=== PATIENT | female | born 1945 | race Caucasian/White ===

== ENCOUNTER 2018-10-21 07:48 | Emergency (ER) | payer OTHER ==
[~2018-10-21] VITALS: Ht 177.8 cm; Wt 81.7 kg
[~2018-10-21 07:48] MED LIST: NOHOMEMEDICATIONS
[2018-10-21 09:58] VITALS: BP 180/72
== END 2018-10-21 09:59 | disposition home or self-care (01) ==
LOC: M.ERS 07:48
DX: S92.912A Unspecified fracture of left toe(s), initial encounter for closed fracture (principal); S90.32XA Contusion of left foot, initial encounter; F10.10 Alcohol abuse, uncomplicated; W10.8XXA Fall (on) (from) other stairs and steps, initial encounter; Y93.89 Activity, other specified; Y92.89 Other specified places as the place of occurrence of the external cause; Y99.8 Other external cause status

== ENCOUNTER 2021-04-02 16:29 | Emergency (ER) | payer OTHER ==
[~2021-04-02] VITALS: Ht 177.8 cm; Wt 83.9 kg
[2021-04-02 16:52] VITALS: BP 152/74
--- NOTE | 2021-04-03 11:01 | EKG ---
[place] [address] ELECTROCARDIOGRAM REPORT Name: DARCIE ARELLANO Room: [facility]#: [id number] Admission: 04/02/21 Attend Phys: Discharge: 04/02/21 Date of : 47 Date of Service: 04/02/211650 Report #: [id number] THIS REPORT FOR: //name// [facility] ED Test Date: 2021-04-02 Test Time: 16:51:02 Pat Name: DARCIE MONGEPEPPER Department: Room: Gender: F Cheese Maker: Ottoniel : 1945 Requested By: Coral Crowder Order Number: [id number] MD: Frederick Gold Measurements Intervals [place] Rate: 75 P: 18 [place]: 155 QRS: -3 QRSD: 92 T: 2 QT: 368 QTc: 411 Interpretive Statements Sinus rhythm Probable left atrial enlargement Probable left ventricular hypertrophy Inferior infarct, age indeterminate No previous ECG available for comparison Electronically Signed On 04-03-2021 11:01:[address] VENDOR by Frederick Gold [email or web address] <ELECTRONICALLY SIGNED> By: Frederick Gold MD, [facility] 04/03/21 1101 [id number] [id number] Frederick Gold MD, [facility] /EPI
== END 2021-04-02 18:42 | disposition left against medical advice (07) ==
LOC: M.ERS 16:29
DX: R07.89 Other chest pain (principal); E66.9 Obesity, unspecified; Z85.118 Personal history of other malignant neoplasm of bronchus and lung; Z88.5 Allergy status to narcotic agent; Z68.26 Body mass index [BMI] 26.0-26.9, adult